=== PATIENT | female | born 1945 | race Hispanic/Latino ===

== ENCOUNTER → 2022-03-23 | Outpatient (CLI) | payer OTHER ==
[~2022-03-23] MED LIST: ALPR-412 PO; CAPT25TA3 PO; DIAZ2.5K2 PO; PARO-37 PO; [UNRECOGNIZED DRUG - OTHER] PO
== END | disposition home or self-care (01) ==
LOC: RAH 13:18
PROVIDERS: ATTEND Internal Medicine
DX: S09.90XA Unspecified injury of head, initial encounter (principal); X58.XXXA Exposure to other specified factors, initial encounter; Y93.89 Activity, other specified; Y92.89 Other specified places as the place of occurrence of the external cause; Y99.8 Other external cause status
CPT/HCPCS: 70450